=== PATIENT | male | born 1995 | race Caucasian/White ===

== ENCOUNTER 2021-05-08 23:22 | Emergency (ER) | payer BC ==
[2021-05-08 23:42] VITALS: TEMP 97.7
[2021-05-09] MEDS ORDERED: guaiFENesin-DM 600/30MG 1 EACH TAB.ER.12H PO STA (00:10)
[2021-05-09] MEDS ORDERED: SODIUM CHLORIDE 0.9% 1,000 ML IV ONE (00:10)
[2021-05-09] MEDS ORDERED: ONDANSETRON 4 MG/2 ML VIAL IVP STA (00:10)
[2021-05-09] MEDS ORDERED: LOPERAMIDE 2 MG CAP PO STA (00:10)
[2021-05-09] MEDS ORDERED: BAMLANIVIMAB (EUA) 700 MG, ETESEVIMAB (EUA) 1,400 MG in SODIUM CHLORIDE 0.9% 50 ML IVPB ONE (00:30)
[2021-05-09] MEDS ORDERED: SODIUM CHLORIDE 0.9% 50 ML IVPB ONE (00:30)
--- NOTE | 2021-05-09 02:02 | ED ---
General Adult HPI - General Chief complaint: Shortness of Breath Stated complaint: Shortness of Breath Time Seen by Provider: 05/08/21 23:47 Source: patient, family Mode of arrival: ambulatory - History of Present Illness Initial comments: 25 year-old male patient presents to the emergency department reporting worsening COVID symptoms. States he started having symptoms on 05/04/21. States he has cough, congestion, body aches, fever, chills, and diarrhea. States that he has been unable to eat or drink all day, but does now feel hungry. He states he is otherwise healthy, does not take medications. He was seen at [facility] yesterday and was given IV fluids. He did not receive antibody infusion. Patient denies any recent rash, chest pain, abdominal pain, nausea, vomiting, back pain, numbness, tingling, dizziness, weakness, hematuria, dysuria, urinary urgency, urinary frequency, headache, visual changes, or any other complaints. - Related Data Allergies Allergy/AdvReac Type Severity Reaction Status Date / Time No Known Allergies Allergy Verified 05/08/21 23:42 Review of Systems ROS Statement: Those systems with pertinent positive or pertinent negative responses have been documented in the HPI. ROS Other: All systems not noted in ROS Statement are negative. Past Medical History Past Medical History: Asthma History of Any Multi-Drug Resistant Organisms: None Reported Past Surgical History: No Surgical Hx Reported Past Psychological History: No Psychological Hx Reported Smoking Status: Never smoker Past Alcohol Use History: Rare Past Drug Use History: None Reported General Exam General appearance: alert, in no apparent distress, other (Physical well- developed, well-nourished adult male patient in no acute distress.) Eye exam: Present: normal appearance, PERRL, EOMI. Absent: scleral icterus, conjunctival injection, periorbital swelling ENT exam: Present: normal exam, normal oropharynx, mucous membranes moist Respiratory exam: Present: normal lung sounds bilaterally. Absent: respiratory distress, wheezes, rales, rhonchi, stridor Cardiovascular Exam: Present: regular rate, normal rhythm, normal heart sounds. Absent: systolic murmur, diastolic murmur, rubs, gallop, clicks GI/Abdominal exam: Present: soft, normal bowel sounds. Absent: distended, tenderness, guarding, rebound, rigid Neurological exam: Present: alert, oriented X3, CN II-XII intact Psychiatric exam: Present: normal affect, normal mood Skin exam: Present: warm, dry, intact, normal color. Absent: rash Course Vital Signs 05/08/21 23:35 Temperature 97.7 F Pulse Rate 114 H Respiratory 20 Rate Blood Pressure 128/79 O2 Sat by Pulse 93 L Oximetry Medical Decision Making - Medical Decision Making 25-year-old male patient presents to the emergency department today for evaluation of upper respiratory symptoms, cough, fever after being diagnosed with COVID-19. Initial vital signs were normal except for decreased oxygen saturation increased heart rate. He was given some IV fluids, medication for symptom relief. He was given infusion of monoclonal antibodies. He did tolerate the infusion well. He'll be discharged follow-up with the primary care physician for recheck in 1-2 days. Return parameters were discussed in detail. He verbalizes understanding and agrees with this plan. My attending is Dr. Diallo. Disposition Clinical Impression: COVID-19 Disposition: HOME SELF-CARE Condition: Good Instructions (If sedation given, give patient instructions): Coronavirus Disease 2019 (COVID-19) Additional Instructions: Please increase fluids. Rest. Alternate Tylenol Motrin for pain and fever control. Follow-up with her primary care physician for recheck in 1-2 days. Return for any new, worsening, or concerning symptoms. Is patient prescribed a controlled substance at d/c from ED?: No Referrals: Chris Chen MD [Primary Care Provider] - 1-2 days Time of Disposition: 02:34
[2021-05-09 03:07] VITALS: BP 135/94; PULSE 108; RESP 14
== END 2021-05-09 03:22 | disposition home or self-care (01) ==
LOC: EC 23:22
DX: U07.1 COVID-19 (principal); J45.909 Unspecified asthma, uncomplicated; Z72.89 Other problems related to lifestyle
CPT/HCPCS: 99283; 96365; 96375; 96361 ×2; J2405; J3490